=== PATIENT | male | born 1985 | race Caucasian/White ===

== ENCOUNTER 2016-07-28 16:51 | Emergency (ER) | payer BC, OTHER | END 2016-07-28 17:05 | disposition left against medical advice (07) | LOC: MW.ED 16:51 | DX: Z53.21 Procedure and treatment not carried out due to patient leaving prior to being seen by health care provider (principal) ==

== ENCOUNTER 2017-06-22 16:51 | Emergency (ER) | payer OTHER ==
[2017-06-22] MEDS ORDERED: Sodium Chloride 0.9% 1,000 ML IV ONE ×2 (16:58→18:47)
[2017-06-22 17:08] VITALS: BP 116/58
--- NOTE | 2017-06-22 17:08 | EDM.PDOC ---
ED HPI GENERAL MEDICAL PROBLEM - General Stated Complaint: UNK Time Seen by Provider: 06/22/17 16:55 Source of Information: Reports: Patient History Limitations: Reports: No Limitations - History of Present Illness INITIAL COMMENTS - FREE TEXT/NARRATIVE: HISTORY AND PHYSICAL: History of present illness: Patient is a 32-year-old male who presents to the emergency room by EMS of altered mental status. EMS was called to the patient's vehicle as a bystander noted he was slumped over in his car with a empty syringe in the passenger seat. EMS reports that he was sluggish to arousal. Patient states that he remembers waking up this morning and getting ready for work, but does not remember the last 8 hours. When confronted about the syringe in his vehicle he told EMS that it was "benzos", but told ER staff it was steroids, as he injects routinely. He is unsure of how he got to the emergency room nor who called. He denies any alcohol or drug abuse. He currently denies any pain. His any recent trauma, injury or assault. He does feel drowsy. Review of systems: As per history of present illness and below otherwise all systems reviewed and negative. Past medical history: As per history of present illness and as reviewed below otherwise noncontributory. Surgical history: As per history of present illness and as reviewed below otherwise noncontributory. Social history: No reported history of drug or alcohol abuse. Family history: As per history of present illness and as reviewed below otherwise noncontributory. Physical exam: General: Developed and well-nourished 32-year-old male. Drowsy but arousable to voice and/or physical stimulation. HEENT: Atraumatic, normocephalic, pupils equal and reactive bilaterally, negative for conjunctival pallor or scleral icterus, mucous membranes moist, throat clear, neck supple, TM normal bilaterally, neck is nontender, trachea midline. No drooling or trismus noted. No meningeal signs Lungs: Clear to auscultation, breath sounds equal bilaterally, chest nontender. Heart: S1S2, regular rate and rhythm without overt murmur Abdomen: Soft, nondistended, nontender. Negative for masses or hepatosplenomegaly. Negative for costovertebral tenderness. Pelvis: Stable nontender. Genitourinary: Deferred. Rectal: Deferred. Skin: Intact, warm, dry. No lesions or rashes noted. Extremities: Atraumatic, moves all per self, negative for cords or calf pain. Neurovascular unremarkable. Neuro: Awake, alert, oriented. Cranial nerves II through XII unremarkable. Cerebellum unremarkable. Motor and sensory unremarkable throughout. Exam nonfocal. Notes: Patient is very vague about answering questions and events leading to him coming to the Emergency room. Will do a workup at this time. VSS. Head CT and chest x-ray are unremarkable. BUN/Creat are slightly elevated, this may be due to his care home use of injectable steroids. Over the past 2 hours we have been attempting to get a urine sample. Refuses straight cath. Patient has been hesitant in trying to void. The significant other at the bedside states that he told her, he took somebody else's anxiety medication through a liquid dropper formula. Patient and significant other unsure of the name of this medication nor the dosing. Patient has been up and ambulating without assistance in his room and to the bathroom. I did offer the patient admission, he appears more alert but still somewhat drowsy. He declines. He is alert and oriented. His significant other is at the bedside and states she will drive him home. I'm going to have him sign out AGAINST MEDICAL ADVICE as I do not have a reason for his syncopal episode besides his reported use of injectable steroids and prescription medication abuse. Diagnostics: CBC, CMP, UA, Drug Screen, Head CT, CXR, EKG Therapeutics: IV fluids Impression: Drug Abuse AMA Plan: Against medical advice. Definitive disposition and diagnosis as appropriate pending reevaluation and review of above. Onset: Today - Related Data Allergies Allergy/AdvReac Type Severity Reaction Status Date / Time No Known Allergies Allergy Verified 07/28/16 17:02 Home Meds: Home Meds . [No Known Home Meds] 09/17/15 [History] Past Medical History - Past Health History Medical/Surgical History: Denies Medical/Surgical History Psychiatric History: Reports: Depression Social & Family History - Family History Family Medical History: Noncontributory - Tobacco Use Smoking Status *Q: Never Smoker Years of Tobacco use: 6 Packs/Tins Daily: 0.5 Used Tobacco, but Quit: No Second Hand Smoke Exposure: No - Recreational Drug Use Recreational Drug Use: No ED ROS GENERAL - Review of Systems Review Of Systems: ROS reveals no pertinent complaints other than HPI. ED EXAM, GENERAL - Physical Exam Exam: See Below (See dictation) Course - Vital Signs Last Recorded V/S: Last Vital Signs Temp 98.0 F 06/22/17 17:05 Pulse 104 H 06/22/17 17:05 Resp 16 06/22/17 17:05 BP 116/58 L 06/22/17 17:05 Pulse Ox 96 06/22/17 17:05 - Orders/Labs/Meds Orders: Active Orders 24 hr Category Date Time Status EKG Documentation Completion [RC] STAT Care 06/22/17 16:58 Active Chest 1V Frontal [CR] Stat Exams 06/22/17 17:08 Taken Head wo Cont [CT] Stat Exams 06/22/17 17:00 Taken DRUG SCREEN, URINE [URCHEM] Stat Lab 06/22/17 17:45 Ordered UA W/MICROSCOPIC [URIN] Stat Lab 06/22/17 17:45 Ordered Sodium Chloride 0.9% [Normal Saline] 1,000 ml Med 06/22/17 18:47 Active IV STAT Medication Orders Sodium Chloride (Normal Saline) 1,000 mls @ 999 mls/hr IV STAT ONE Stop: 06/22/17 19:47 Labs: Laboratory Tests 06/22/17 06/22/17 Range/Units 17:26 17:26 WBC 7.97 (4.0-11.0) K/uL RBC 5.48 (4.50-5.90) M/uL Hgb 15.0 (13.0-17.0) g/dL Hct 45.3 (38.0-50.0) % MCV 82.7 (80.0-98.0) fL MCH 27.4 (27.0-32.0) pg MCHC 33.1 (31.0-37.0) g/dL RDW Std Deviation 44.1 (28.0-62.0) fl RDW Coeff of Bryon 15 (11.0-15.0) % Plt Count 242 (150-400) K/uL MPV 9.30 (7.40-12.00) fL Neut % (Auto) 70.4 (48.0-80.0) % Lymph % (Auto) 19.4 (16.0-40.0) % Hand % (Auto) 8.3 (0.0-15.0) % Eos % (Auto) 1.8 (0.0-7.0) % Baso % (Auto) 0.1 (0.0-1.5) % Neut # (Auto) 5.6 (1.4-5.7) K/uL Lymph # (Auto) 1.6 (0.6-2.4) K/uL Hand # (Auto) 0.7 (0.0-0.8) K/uL Eos # (Auto) 0.1 (0.0-0.7) K/uL Baso # (Auto) 0.0 (0.0-0.1) K/uL Nucleated RBC % 0.0 /100WBC Nucleated RBCs # 0 K/uL Sodium 144 (136-148) mmol/L Potassium 3.8 (3.5-5.1) mmol/L Chloride 109 H (98-107) mmol/L Carbon Dioxide 22.9 (21.0-32.0) mmol/L BUN 28 H (7.0-18.0) mg/dL Creatinine 1.9 H (0.8-1.3) mg/dL Est Cr Clr Drug Dosing 71.64 mL/min Estimated GFR (MDRD) 41.8 ml/min Glucose 91 (74-106) mg/dL Calcium 8.3 L (8.5-10.1) mg/dL Total Bilirubin 0.4 (0.2-1.0) mg/dL AST 54 H (15-37) IU/L ALT 48 (14-63) IU/L Alkaline Phosphatase 62 (46-116) U/L Troponin I < 0.050 (0.000-0.056) ng/mL Total Protein 7.2 (6.4-8.2) g/dL Albumin 3.5 (3.4-5.0) g/dL Globulin 3.7 H (2.0-3.5) g/dL Albumin/Globulin Ratio 1.0 L (1.3-2.8) Ethyl Alcohol < 3.0 mg/dL Meds: Medications Generic Name Dose Route Start Last Admin Trade Name Freq PRN Reason Stop Dose Admin Sodium Chloride 1,000 mls @ 999 mls/hr 06/22/17 18:47 Normal Saline IV 06/22/17 19:47 STAT ONE Discontinued Medications Generic Name Dose Route Start Last Admin Trade Name Keke PRN Reason Stop Dose Admin Sodium Chloride 1,000 mls @ 999 mls/hr 06/22/17 16:58 06/22/17 18:00 Normal Saline IV 06/22/17 17:58 999 mls/hr STAT ONE Administration Departure - Departure Time of Disposition: 19:19 Disposition: Against Medical Advice 07 Clinical Impression: Drug abuse - Discharge Information Referrals: PCP,None [Primary Care Provider] - - My Orders Last 24 Hours: My Active Orders 06/22/17 16:58 EKG Documentation Completion [RC] STAT 06/22/17 17:00 Head wo Cont [CT] Stat 06/22/17 17:08 Chest 1V Frontal [CR] Stat 06/22/17 17:45 DRUG SCREEN, URINE [URCHEM] Stat UA W/MICROSCOPIC [URIN] Stat 06/22/17 18:47 Sodium Chloride 0.9% [Normal Saline] 1,000 ml IV STAT - Assessment/Plan Last 24 Hours: My Active Orders 06/22/17 16:58 EKG Documentation Completion [RC] STAT 06/22/17 17:00 Head wo Cont [CT] Stat 06/22/17 17:08 Chest 1V Frontal [CR] Stat 06/22/17 17:45 DRUG SCREEN, URINE [URCHEM] Stat UA W/MICROSCOPIC [URIN] Stat 06/22/17 18:47 Sodium Chloride 0.9% [Normal Saline] 1,000 ml IV STAT
[2017-06-22 18:05] LABS: CHLORIDE,CL 109 mmol/L (98-107); SODIUM,NA 144 mmol/L (136-148)
--- NOTE | 2017-06-25 09:37 | CT ---
EXAM DATE: 06/22/17 PATIENT'S AGE: 32 Patient: NATHANIEL FLORES Facility: [place], [place] Site . Site : 1985 Study: CT Head [id number] 5:14:30 PM Ordering Physician: Doctor Kam Final Report: INDICATION: Found unconscious TECHNIQUE: CT Head without i.v. contrast. CONTRAST: None COMPARISON: None FINDINGS: CSF spaces: The ventricles are normal for age. Brain: No evidence of mass, acute infarction or hemorrhage is seen. No mass- effect or midline shift is seen. The brain parenchyma is otherwise normal in appearance with preservation of the trujillo-white matter junction. Calvarium: The visualized paranasal sinuses are well aerated. The mastoid air cells are clear. The visualized orbits are grossly unremarkable. The calvarium is unremarkable in appearance with no fractures identified. IMPRESSION: 1. No evidence of acute infarction, intracranial hemorrhage, or mass-effect seen. Please note that all CT scans at this facility use dose modulation, iterative reconstruction, and/or weight-based dosing when appropriate to reduce radiation dose to as low as reasonably achievable. Dictated by: Jamar Resendiz MD @ 06/22/2017 17:32:31 (Electronic Signature) Report Signed by Proxy. AYUSH
--- NOTE | 2017-06-25 09:38 | CR ---
EXAM DATE: 06/22/17 PATIENT'S AGE: 32 Patient: NATHANIEL FLORES Facility: [place], [place] Site . Site : 1985 Study: XRay Chest [id number]/4/2018 5:20:24 PM Ordering Physician: Doctor Kam Final Report: INDICATION: Altered mental status TECHNIQUE: Chest radiograph 1 views on 2 films COMPARISON: None FINDINGS: Mediastinum: The heart silhouette is normal in size and morphology. The mediastinum is normal in appearance. Lungs: Both lungs are unremarkable in appearance. No sign of pleural effusion seen. No pneumothorax is identified. Bones and soft tissue: Unremarkable for age. IMPRESSION: 1. No acute cardiopulmonary disease is seen. Dictated by: Jamar Resendiz MD @ 06/22/2017 17:35:29 (Electronic Signature) Report Signed by Proxy. [facility]ARE SYSTEMAliyah
== END 2017-06-22 19:24 | disposition left against medical advice (07) ==
LOC: MW.ED 16:51
DX: F19.10 Other psychoactive substance abuse, uncomplicated (principal); Z53.20 Procedure and treatment not carried out because of patient's decision for unspecified reasons
CPT/HCPCS: 36415; 70450; 71045; 80053; 84484; 85025; 93005; 96360; 99285; G0480; J7040

== ENCOUNTER 2019-05-19 17:33 | Emergency (ER) | payer SELFPAY ==
[2019-05-19] MEDS ORDERED: Sodium Chloride 0.9% 1,000 ML IV ONE (17:47)
[2019-05-19] MEDS ORDERED: ceFAZolin 2 GM in Premix Bag 1 BAG IV ONE (17:48)
[2019-05-19] MEDS ORDERED: Diphtheria,Pertussis(Acell),Tetanus Vaccine 0.5 ML Syringe IM ONE (17:49)
--- NOTE | 2019-05-19 17:53 | EDM.PDOC ---
ED HPI GENERAL MEDICAL PROBLEM - General Chief Complaint: Laceration Stated Complaint: ABDOMINAL INJURY LOWER RIGHT Time Seen by Provider: 05/19/19 17:50 Source of Information: Reports: Patient History Limitations: Reports: No Limitations - History of Present Illness INITIAL COMMENTS - FREE TEXT/NARRATIVE: This is a 34-year-old gentleman who presents to the emergency room after an industrial injury. Patient states a large object ended his abdomen approximately 1 hour ago and is here for evaluation. Onset: Today Duration: Minutes:, Improving Location: Reports: Abdomen Quality: Reports: Burning Severity: Moderate Improves with: Reports: None Worsens with: Reports: None Associated Symptoms: Reports: No Other Symptoms Right Lower Abdomen Pain Score (Numeric/FACES): 7 - Related Data Allergies Allergy/AdvReac Type Severity Reaction Status Date / Time No Known Allergies Allergy Verified 05/19/19 17:36 Home Meds: Home Meds . [No Known Home Meds] 09/17/15 [History] Past Medical History - Past Health History Medical/Surgical History: Denies Medical/Surgical History Psychiatric History: Reports: Depression Other Psychiatric History: Uses steroid injections for muscle growth and body building - Infectious Disease History Infectious Disease History: Reports: Chicken Pox Social & Family History - Family History Family Medical History: Noncontributory - Tobacco Use Smoking Status *Q: Never Smoker - Caffeine Use Caffeine Use: Reports: Coffee - Recreational Drug Use Recreational Drug Use: No ED ROS GENERAL - Review of Systems Review Of Systems: See Below Constitutional: Reports: No Symptoms HEENT: Reports: No Symptoms Respiratory: Reports: No Symptoms Cardiovascular: Reports: No Symptoms Endocrine: Reports: No Symptoms GI/Abdominal: Reports: Abdominal Pain : Reports: No Symptoms Musculoskeletal: Reports: No Symptoms Skin: Reports: Wound, Other (Patient to be a superficial puncture wound in the lower abdomen.) ED EXAM, SKIN/RASH Exam: See Below Exam Limited By: No Limitations General Appearance: Alert, WD/WN, No Apparent Distress Eye Exam: Bilateral Eye: Normal Fundi, Normal Inspection, PERRL Ears: Normal External Exam, Normal Canal, Normal TMs Nose: Normal Inspection, Normal Mucosa Throat/Mouth: Normal Inspection, Normal Lips Head: Atraumatic, Normocephalic Neck: Normal Inspection, Supple, Non-Tender Respiratory/Chest: No Respiratory Distress, Lungs Clear, Normal Breath Sounds Cardiovascular: Normal Peripheral Pulses, Regular Rate, Rhythm, No Edema, No JVD , No Murmur GI/Abdominal: Normal Bowel Sounds, Soft, Non-Tender Back Exam: Normal Inspection, Full Range of Motion Extremities: Normal Inspection, Normal Range of Motion, No Pedal Edema, Normal Capillary Refill Neurological: Alert, Oriented, CN II-XII Intact, Normal Cognition, Normal Reflexes, No Motor/Sensory Deficits Location, Skin: Abdomen (He has 2 small puncture wound and abrasion on his abdominal wall. Appears to be a superficial injury.) Course - Vital Signs Last Recorded V/S: Last Vital Signs Temp 96.6 F L 05/19/19 17:37 Pulse 101 H 05/19/19 17:37 Resp 26 H 05/19/19 17:37 BP 155/48 H 05/19/19 17:37 Pulse Ox 100 05/19/19 17:37 - Orders/Labs/Meds Orders: Active Orders 24 hr Category Date Time Status Vaccines to be Administered [RC] PER UNIT ROUTINE Care 05/19/19 17:49 Inactive Abdomen Pelvis w Cont [CT] Stat Exams 05/19/19 17:45 Ordered Labs: Laboratory Tests 05/19/19 05/19/19 Range/Units 17:55 17:55 WBC 8.55 (4.0-11.0) K/uL RBC 5.38 (4.50-5.90) M/uL Hgb 15.3 (13.0-17.0) g/dL Hct 47.3 (38.0-50.0) % MCV 87.9 (80.0-98.0) fL MCH 28.4 (27.0-32.0) pg MCHC 32.3 (31.0-37.0) g/dL RDW Std Deviation 45.7 (28.0-62.0) fl RDW Coeff of Bryon 14 (11.0-15.0) % Plt Count 253 (150-400) K/uL MPV 9.10 (7.40-12.00) fL Neut % (Auto) 69.4 (48.0-80.0) % Lymph % (Auto) 20.1 (16.0-40.0) % Hood % (Auto) 8.7 (0.0-15.0) % Eos % (Auto) 1.3 (0.0-7.0) % Baso % (Auto) 0.5 (0.0-1.5) % Neut # (Auto) 5.9 H (1.4-5.7) K/uL Lymph # (Auto) 1.7 (0.6-2.4) K/uL Hood # (Auto) 0.7 (0.0-0.8) K/uL Eos # (Auto) 0.1 (0.0-0.7) K/uL Baso # (Auto) 0.0 (0.0-0.1) K/uL Nucleated RBC % 0.0 /100WBC Nucleated RBCs # 0 K/uL Sodium 142 (136-148) mmol/L Potassium 4.5 (3.5-5.1) mmol/L Chloride 106 (98-107) mmol/L Carbon Dioxide 26.2 (21.0-32.0) mmol/L BUN 23 H (7.0-18.0) mg/dL Creatinine 1.5 H (0.8-1.3) mg/dL Est Cr Clr Drug Dosing 89.10 mL/min Estimated GFR (MDRD) 54.2 ml/min Glucose 91 (74-106) mg/dL Calcium 8.8 (8.5-10.1) mg/dL Total Bilirubin 0.7 (0.2-1.0) mg/dL AST 70 H (15-37) IU/L ALT 91 H (14-63) IU/L Alkaline Phosphatase 66 (46-116) U/L Total Protein 7.0 (6.4-8.2) g/dL Albumin 3.7 (3.4-5.0) g/dL Globulin 3.3 (2.6-4.0) g/dL Albumin/Globulin Ratio 1.1 (0.9-1.6) Meds: Medications Discontinued Medications Generic Name Dose Route Start Last Admin Trade Name Freq PRN Reason Stop Dose Admin Diphtheria/Tetanus/Acell Pertussis 0.5 ml 05/19/19 17:49 05/19/19 18:02 Adacel IM 05/19/19 17:50 Not Given .ONCE ONE Cefazolin Sodium/Dextrose 2 gm 50 mls @ 100 mls/hr 05/19/19 17:48 05/19/19 18 :01 / Premix IV 05/19/19 18:17 100 mls/hr ONETIME ONE Administration Sodium Chloride 1,000 mls @ 1,000 mls/hr 05/19/19 17:47 05/19/19 18:01 Normal Saline IV 05/19/19 18:46 1,000 mls/hr .Bolus ONE Administration Iopamidol 100 ml 05/19/19 18:53 05/19/19 18:54 Isovue Multipack-370 (76%) IVPUSH 05/19/19 18:54 100 ml ONETIME STA Administration Departure - Departure Time of Disposition: 19:06 Disposition: Home, Self-Care 01 Clinical Impression: Wound, open, abdominal wall, anterior - Discharge Information Instructions: Skin Tear, [id number], Wound Care, Adult, Puncture Wound, Easy- to-Read Forms: ED Department Discharge Additional Instructions: Use Neosporin ointment to the area every day clean the wound and dress. Follow-up with surgery in 1 week. Return for any problems Sepsis Event Note - Evaluation Sepsis Screening Result: No Definite Risk - Focused Exam Vital Signs: Vital Signs Temp Pulse Resp BP Pulse Ox 05/19/19 17:37 96.6 F L 101 H 26 H 155/48 H 100 Date Exam was Performed: 05/19/19 Time Exam was Performed: 19:03 - My Orders Last 24 Hours: My Active Orders 05/19/19 17:45 Abdomen Pelvis w Cont [CT] Stat 05/19/19 17:49 Vaccines to be Administered [RC] PER UNIT ROUTINE - Assessment/Plan Last 24 Hours: My Active Orders 05/19/19 17:45 Abdomen Pelvis w Cont [CT] Stat 05/19/19 17:49 Vaccines to be Administered [RC] PER UNIT ROUTINE
--- NOTE | 2019-05-19 18:12 | CR ---
Chest: Portable view of the chest was obtained. Comparison: Previous chest x-ray of 06/22/17. Heart size and mediastinum are normal. Lungs are clear. Minimal scoliosis is noted. Nothing acute is appreciated. No free air is seen beneath the hemidiaphragms. Impression: 1. Nothing acute is appreciated on portable chest x-ray. Diagnostic code #1 This report was dictated in MDT
[2019-05-19 18:33] LABS: CARBON DIOXIDE,CO2 26.2 mmol/L (21.0-32.0); POTASSIUM,K 4.5 mmol/L (3.5-5.1)
[2019-05-19] MEDS ORDERED: Iopamidol 755 MG/ML 500 ML Multipack Bottle IVPUSH STA (18:53)
--- NOTE | 2019-05-19 19:09 | CT ---
CT abdomen and pelvis Technique: Multiple axial sections were obtained from above the dome of the diaphragm inferiorly through the pubic symphysis. Intravenous contrast was utilized. Oral contrast not utilized. Details of the study are somewhat diminished due to paucity of intra-abdominal fat in conjunction with lack of oral contrast. Comparison: Prior CT abdomen and pelvis exam of 10/08/10. Findings: Visualized lung bases show nothing acute. Liver contains no focal parenchymal abnormality. Spleen appears within normal limits. Kidneys show symmetric contrast enhancement and appear without acute abnormality. Adrenal glands show no nodule. Pancreas shows no definite abnormality. Gallbladder contains no calcified gallstones. Aorta shows no aneurysm. No retroperitoneal adenopathy is seen. No discrete mesenteric abnormalities are appreciated. Appendix is not definitely visualized. No free fluid or inflammatory change is appreciated. Bone window settings were reviewed. No acute osseous finding is appreciated. Impression: 1. Somewhat limited details due to paucity of intra-abdominal fat and lack of oral contrast. 2. Within this limitation, nothing acute is appreciated on CT study of the abdomen and pelvis. Diagnostic code #1 This report was dictated in MDT
[2019-05-19] MEDS ORDERED: Ketorolac 15 MG/ML SDV IVPUSH ONE (20:07)
[2019-05-19] MEDS ORDERED: Bacitracin Oint 1 GM U/D Packet TOP ONE (20:14)
[2019-05-19 20:26] VITALS: BP 170/72; PULSE 93
[2019-05-20] MEDS ORDERED: POLYMYXIN B TOP SCH (09:00)
[2019-05-20] MEDS ORDERED: BACITRACIN TOP SCH (09:00)
== END 2019-05-19 20:28 | disposition home or self-care (01) ==
LOC: MW.ED 17:33
DX: S31.109A Unspecified open wound of abdominal wall, unspecified quadrant without penetration into peritoneal cavity, initial encounter (principal); X58.XXXA Exposure to other specified factors, initial encounter
CPT/HCPCS: 71045; 74177; 80053; 85025; 96361; 96365; 96375; 99284; J0690; J1885; J7030; Q9967

== ENCOUNTER 2022-02-26 23:55 | Emergency (ER) | payer SELFPAY ==
[2022-02-27 00:08] VITALS: PULSE 98
[2022-02-27] MEDS ORDERED: Sulfamethoxazole/Trimethoprim 800-160 MG Tab PO ONE (00:29)
[2022-02-27 00:46] VITALS: BP 139/83
== END 2022-02-27 00:45 | disposition home or self-care (01) ==
LOC: MW.ED 23:55
DX: L73.9 Follicular disorder, unspecified (principal); R19.7 Diarrhea, unspecified; F15.90 Other stimulant use, unspecified, uncomplicated; I10 Essential (primary) hypertension; E11.9 Type 2 diabetes mellitus without complications
CPT/HCPCS: 99282; A9270